=== PATIENT | female | born 1955 | race Caucasian/White ===

== ENCOUNTER 2016-08-18 11:22 | Emergency (ER) | payer BC ==
[~2016-08-18] VITALS: Ht 170.2 cm; Wt 140.0 kg
[~2016-08-18 11:22] MED LIST: ALBU2TAB5 PO; HYDR-3720 PO; SERT100T PO; SIMV10TA PO; THEO600T PO; WARF6TAB PO
[2016-08-18 11:29] VITALS: Ht 170.2 cm; Wt 140.0 kg
--- NOTE | 2016-08-18 17:16 | ERD ---
ER Documentation Chief Complaint Date/Time DATE: 08/18/16 TIME: 17:13 Chief Complaint left lower abdominal pain x 7 days, hx diveriticulitis HPI Patient is a 60-year-old female who presents to the ER with 3 weeks of gradual onset, intermittent, moderate to severe, sharp pain to left inguinal region radiating to the left flank and left thigh. Patient denies fever, vomiting, abdominal pain, leg weakness or numbness, constipation. The patient does report diarrhea, no mucus or blood, no dark stool. The patient states that her pain is worse when she bears weight on her left leg. The patient was seen for this complaint 3 weeks ago, and again a week and a half ago. She had a CT scan that showed a fat-containing left inguinal hernia, and diverticulosis without diverticulitis. She also had an x-ray of her hip that was unremarkable. She also had an unremarkable urinalysis. Patient states that 4 days ago, she was walking and turned her ankle, and since that time has had recurrence of these symptoms. ROS All systems reviewed and are negative except as per history of present illness. Medications Home Meds Active Scripts Cyclobenzaprine Hcl* (Cyclobenzaprine Hcl*) 10 Mg Tablet, 10 MG PO TID, #15 TAB Prov:ROCCO ZAVALETA MD 08/18/16 Reported Medications Hydrocodone/Acetaminophen ([place] 10-325 Tablet) 1 Each Tablet, 1 EACH PO BID, TAB 08/18/16 Theophylline Anhydrous* ([place]man-24*) 300 Mg Cap.sr.24h, 300 MG PO DAILY, CAP 08/18/16 Canagliflozin (Invokana) 300 Mg Tablet, 300 MG PO DAILY, TAB 08/18/16 Irbesartan* (Avapro*) 150 Mg Tablet, 150 MG PO DAILY, TAB 08/18/16 Metformin* (Glucophage*) 500 Mg Tab, 500 MG PO WITH LUNCH DINNER, #60 TAB 08/18/16 Sertraline Hcl* (Zoloft*) 100 Mg Tablet, 100 MG PO DAILY, TAB 02/06/14 Simvastatin* (Zocor*) 10 Mg Tablet, 10 MG PO HS, TAB 02/06/14 Warfarin Sodium* (Coumadin*) 6 Mg Tablet, 6 MG PO DAILY, TAB 02/06/14 Albuterol Sulfate* (Albuterol Sulfate*) 2 Mg Tablet, 2 MG PO BID, TAB 02/06/14 Discontinued Reported Medications Theophylline Anhydrous* (Theophylline* ER) 600 Mg Tablet.sa, 300 MG PO Q8, TAB.SA 02/06/14 Hydrocodone Bit-Acetaminophen* ([place]coe*) 7.5-325 Tablet, 1 TAB PO BID Y for PAIN , TAB 02/06/14 Allergies Allergies: Coded Allergies: Sulfa (Sulfonamide Antibiotics) (Unverified Allergy, Unknown, 08/18/16) PMhx/Soc Past medical history: Obesity, asthma, pulmonary embolism (on Coumadin) Past surgical history: Social history: Denies tobacco, alcohol or illicit drugs. History of Surgery: Yes (C-SECTIONS X 2) Anesthesia Reaction: No Hx Neurological Disorder: No Hx Respiratory Disorders: Yes (ASTHMA) Hx Cardiac Disorders: Yes (PE) Hx Psychiatric Problems: No Hx Miscellaneous Medical Probl: Yes (DM) Hx Alcohol Use: No Hx Substance Use: No Hx Tobacco Use: No Smoking Status: Former smoker FmHx Family History: No coronary disease, No diabetes Physical Exam Vitals Vital Signs Date Time Temp Pulse Resp B/P Pulse Ox O2 Delivery O2 Flow Rate FiO2 08/18/16 19:09 79 18 133/76 98 Room Air 08/18/16 16:28 76 20 142/63 97 Room Air 08/18/16 11:29 97.6 105 20 96 Physical Exam Const: Alert, no acute distress Head: Atraumatic Eyes: Normal Conjunctiva, no pallor, no icterus ENT: Normal External Ears, Nose and Mouth. Neck: Full range of motion..~ No meningismus. Resp: Clear to auscultation bilaterally, no wheezes, no rales Cardio: Regular rate and rhythm, no murmurs Abd: Soft, non tender, non distended. Normal bowel sounds, no palpable hernia Skin: No petechiae or rashes Back: No midline or flank tenderness, no CVA tenderness Ext: No cyanosis, or edema Neur: Awake and alert, cranial nerves II through XII intact bilaterally, ambulates well with mildly antalgic gait. Psych: Normal Mood and Affect Results 24 hrs Laboratory Tests Test 08/18/16 17:30 Urine Color YELLOW Urine Clarity CLEAR Urine pH 7.0 Urine Specific [place] 1.015 Urine Ketones NEGATIVE Urine Nitrite NEGATIVE Urine Bilirubin 1+ Urine Ictotest NEGATIVE Urine Urobilinogen 0.2 E.U./dL Urine Leukocyte Esterase NEGATIVE Urine Microscopic RBC 0-2/HPF Urine Microscopic WBC 0-2/HPF Urine Squamous Epithelial Cells FEW Urine Hemoglobin NEGATIVE Urine Glucose NEGATIVE% Urine Total Protein 1+ Current Medications Medications (Trade) Dose Ordered Sig/[place] Route PRN Reason Start Time Stop Time Status Last Admin Dose Admin Cyclobenzaprine HCl (Flexeril) 10 mg ONCE ONCE PO 08/18/16 17:30 08/18/16 17:31 DC 08/18/16 17:22 Procedures/MDM MDM: Patient is a 60-year-old female who has had recurrent left inguinal and thigh pain for 3 weeks. She was seen by her primary doctor and had workup including a CT scan of the abdomen and an x-ray of the left hip that were unremarkable. She called her doctor, Dr. Farrell, who sent her to the ER for further evaluation. The patient has no abdominal tenderness on exam and an unremarkable UA. There is no neurological deficit in the left lower extremity. There is no midline tenderness in the back. Exam and history is not concerning for diverticulitis, incarcerated hernia. She does have a known hernia containing only fat on recent CT, and she has follow-up scheduled in less than 2 weeks with a surgeon. I believe that her symptoms are suggestive of either muscle strain or lateral femoral cutaneous syndrome, as the distribution of pain in the leg is consistent. She does not have numbness or paresthesia however. Low thoracic or lumbar nerve impingement is also a possibility. I will discharge the patient with a trial of Flexeril, and advised on return precautions and to call her PMD tomorrow to arrange outpatient follow-up. I discussed my exam and findings, as well as my plan with Dr. Farrell and he agrees with this plan. 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
[2016-08-18] MEDS ORDERED: CYCLOBENZAPRINE 10 MG TAB PO ONE (17:30)
[2016-08-18] MEDS ORDERED: METF500T4 PO (17:45)
[2016-08-18] MEDS ORDERED: IRBE150T19 PO (17:46)
[2016-08-18] MEDS ORDERED: CANA300T PO (17:49)
[2016-08-18] MEDS ORDERED: THP300CCR PO (17:52)
[2016-08-18] MEDS ORDERED: HYDR-902 PO (17:52)
[2016-08-18 18:17] LABS: ADD UMIC YES; URINE BILIRUBIN (Dip) 1+ (NEGATIVE); URINE BLOOD (Dip) NEGATIVE (NEGATIVE); URINE COLOR YELLOW (YELLOW); URINE GLUCOSE (Dip) NEGATIVE (NEGATIVE); URINE KETONES (Dip) NEGATIVE (NEGATIVE); URINE LEUKOCYTE ESTERASE (Dip) NEGATIVE (NEGATIVE); URINE NITRITE (Dip) NEGATIVE (NEGATIVE); URINE TOTAL PROTEIN (Dip) 1+ (NEGATIVE); URINE UROBILINOGEN (Dip) 0.2 E.U./dL (0.1-1.0)
[2016-08-18 18:26] LABS: ICTOTEST NEGATIVE (NEGATIVE); SQUAMOUS EPITHELIAL CELL,UR FEW; URINE RBCS 0-2 /HPF (0)
[2016-08-18] MEDS ORDERED: CYCL-319 PO (18:50)
[2016-08-18 19:09] VITALS: BP 133/76; PULSE 79; RESP 18
== END 2016-08-18 19:09 | disposition home or self-care (01) ==
LOC: E/R 11:22
DX: R10.32 Left lower quadrant pain (principal); G57.12 Meralgia paresthetica, left lower limb; E66.01 Morbid (severe) obesity due to excess calories; J45.909 Unspecified asthma, uncomplicated; E11.9 Type 2 diabetes mellitus without complications; Z68.42 Body mass index [BMI] 45.0-49.9, adult; Z79.84 Long term (current) use of oral hypoglycemic drugs; Z79.01 Long term (current) use of anticoagulants; Z87.891 Personal history of nicotine dependence
CPT/HCPCS: 81001; 81003